=== PATIENT | female | born 1990 | race Two or more races ===

== ENCOUNTER 2022-02-06 15:26 | Inpatient (IN) | payer OTHER ==
[~2022-02-06] VITALS: Ht 170.2 cm; Wt 117.0 kg
[2022-02-06 17:45] VITALS: BP 102/59
[2022-02-06] MEDS ORDERED: MELATONIN 5 MG TABLET PO PRN (18:15)
[2022-02-06] MEDS ORDERED: ACETAMINOPHEN 325 MG TABLET PO PRN (18:15)
[2022-02-06 21:05] VITALS: BP 122/60
[2022-02-06 21:16] LABS: BASOPHILS % (AUTO) 0.6 % (0.0-2.0); EOSINOPHILS % (AUTO) 1.8 % (1.0-6.0); HEMATOCRIT 40.8 % (36-46); HEMOGLOBIN 13.2 g/dL (12.0-16.0); LYMPHOCYTES % (AUTO) 26.2 % (22.0-44.0); MEAN CORPUSCULAR HEMOGLOBIN 28.2 pg (26.0-34.0); MEAN CORPUSCULAR HGB CONC 32.5 G/dL (31.0-37.0); MEAN CORPUSCULAR VOLUME 87 fL (80-100); MONOCYTES # (AUTO) 0.7 K/uL (0.1-1.0); MONOCYTES % (AUTO) 5.9 % (2.0-9.0); NEUTROPHILS # (AUTO) 7.5 K/uL (1.8-7.7); NEUTROPHILS % (AUTO) 65.5 % (40.0-70.0); PLATELET COUNT (AUTO) 282 K/uL (150-450); RED BLOOD CELL COUNT(AUTO) 4.69 MIL/uL (4.00-5.20); RED CELL DISTRIBUTION WIDTH 14.3 % (11.5-14.5)
[2022-02-06 21:21] LABS: ALANINE AMINOTRANSFERASE 71 U/L (12-78); ALBUMIN 3.6 g/dL (3.4-5.0); ALKALINE PHOSPHATASE 94 U/L (46-116); ANION GAP 3 mmol/L (8-16); ASPARTATE AMINOTRANSFERASE 42 U/L (15-37); BILIRUBIN,TOTAL 0.7 mg/dL (0.1-1.0); CARBON DIOXIDE 31 mmol/L (22-29); CHLORIDE 103 mmol/L (98-107); CREATININE 0.63 mg/dL (0.60-1.30); GLUCOSE,RANDOM 111 mg/dL (70-110); POTASSIUM 3.8 mmol/L (3.5-5.1); SODIUM SERUM 137 mmol/L (136-145); TOTAL PROTEIN, SERUM 7.3 g/dL (6.4-8.2); UREA NITROGEN, BLOOD 15 mg/dL (7-18)
[2022-02-06 21:27] LABS: GLOMERULAR FILTR. RATE CALC > 60 mL/min (>60)
[2022-02-06] MEDS: -LIDODERM PATCH NOTE- MISC SCH (21:27)
[2022-02-06] MEDS: DOCUSATE SODIUM 100 MG CAPSULE PO SCH (21:27)
[2022-02-06] MEDS: ENOXAPARIN SODIUM 40 MG/0.4 ML PF SYRINGE SQ SCH (21:27)
[2022-02-06] MEDS: SENNA 187 MG TABLET PO SCH (21:27)
[2022-02-06] MEDS: LevETIRAcetam 500 MG TABLET PO SCH (21:27)
[2022-02-07 05:56] LABS: GLUCOMETER DEV NAME(LOC) 2WR.1C; GLUCOSE,POINT OF CARE 141 MG/DL (70-110)
[2022-02-07] MEDS: LevETIRAcetam 500 MG TABLET PO SCH ×2 (08:43→21:23)
[2022-02-07] MEDS: DOCUSATE SODIUM 100 MG CAPSULE PO SCH ×2 (08:43→21:23)
[2022-02-07] MEDS: LIDOCAINE 5% TRANSDERMAL PATCH TD SCH (08:43)
[2022-02-07] MEDS: SERTRALINE HCL 50 MG TABLET PO SCH (08:43)
[2022-02-07] MEDS: ENOXAPARIN SODIUM 40 MG/0.4 ML PF SYRINGE SQ SCH ×2 (08:44→21:23)
[2022-02-07] MEDS: ETHYL ALCOHOL 62% ANTISEPTIC NASAL SANITIZER 0.6 ML AMPUL NASAL SCH ×2 (08:44→21:23)
[2022-02-07 09:05] VITALS: BP 121/58
[2022-02-07 20:45] VITALS: BP 116/77
[2022-02-07] MEDS: SENNA 187 MG TABLET PO SCH (21:23)
[2022-02-07] MEDS: -LIDODERM PATCH NOTE- MISC SCH (21:24)
[2022-02-08] MEDS: ENOXAPARIN SODIUM 40 MG/0.4 ML PF SYRINGE SQ SCH ×2 (07:47→21:09)
[2022-02-08] MEDS: LIDOCAINE 5% TRANSDERMAL PATCH TD SCH (07:47)
[2022-02-08] MEDS: LevETIRAcetam 500 MG TABLET PO SCH ×2 (07:48→21:05)
[2022-02-08] MEDS: DOCUSATE SODIUM 100 MG CAPSULE PO SCH ×2 (07:48→21:05)
[2022-02-08] MEDS: ETHYL ALCOHOL 62% ANTISEPTIC NASAL SANITIZER 0.6 ML AMPUL NASAL SCH ×2 (07:48→21:05)
[2022-02-08] MEDS: SERTRALINE HCL 50 MG TABLET PO SCH (07:48)
[2022-02-08 09:03] VITALS: BP 124/56
[2022-02-08] MEDS: IBUPROFEN 400 MG TABLET PO SCH ×3 (12:49→21:06)
[2022-02-08 14:50] VITALS: BP 120/70
[2022-02-08 18:59] VITALS: BP 108/58
[2022-02-08] MEDS ORDERED: IOHEXOL 350 MG/ML 100 ML VIAL ONE (19:09)
[2022-02-08] MEDS ORDERED: SODIUM CHLORIDE 0.9% 100 ML ONE (19:09)
[2022-02-08 19:58] VITALS: BP 125/64
[2022-02-08] MEDS: SENNA 187 MG TABLET PO SCH (21:05)
[2022-02-08] MEDS: -LIDODERM PATCH NOTE- MISC SCH (21:06)
[2022-02-08 21:17] LABS: ANION GAP 6 mmol/L (8-16); CALCIUM, TOTAL 8.4 mg/dL (8.8-10.5); CARBON DIOXIDE 27 mmol/L (22-29); CHLORIDE 103 mmol/L (98-107); CREATININE 0.69 mg/dL (0.60-1.30); GLUCOSE,RANDOM 114 mg/dL (70-110); POTASSIUM 3.2 mmol/L (3.5-5.1); SODIUM SERUM 136 mmol/L (136-145); UREA NITROGEN, BLOOD 15 mg/dL (7-18)
[2022-02-08 21:22] LABS: GLOMERULAR FILTR. RATE CALC > 60 mL/min (>60)
[2022-02-08] MEDS ORDERED: POTASSIUM CHL 10 MEQ/WATER 50 ML IV PRN (22:15)
[2022-02-08] MEDS ORDERED: POTASSIUM CHLORIDE 20 MEQ ER TABLET PO PRN (22:15)
[2022-02-09 06:12] VITALS: BP 92/65
[2022-02-09 06:32] LABS: BASOPHILS % (AUTO) 0.7 % (0.0-2.0); EOSINOPHILS % (AUTO) 4.8 % (1.0-6.0); HEMATOCRIT 40.2 % (36-46); HEMOGLOBIN 13.1 g/dL (12.0-16.0); LYMPHOCYTES # (AUTO) 1.6 K/uL (1.0-4.8); LYMPHOCYTES % (AUTO) 23.9 % (22.0-44.0); MEAN CORPUSCULAR HEMOGLOBIN 28.4 pg (26.0-34.0); MEAN CORPUSCULAR HGB CONC 32.5 G/dL (31.0-37.0); MEAN CORPUSCULAR VOLUME 88 fL (80-100); MONOCYTES # (AUTO) 0.5 K/uL (0.1-1.0); MONOCYTES % (AUTO) 7.9 % (2.0-9.0); NEUTROPHILS # (AUTO) 4.2 K/uL (1.8-7.7); NEUTROPHILS % (AUTO) 62.7 % (40.0-70.0); PLATELET COUNT (AUTO) 218 K/uL (150-450); RED BLOOD CELL COUNT(AUTO) 4.59 MIL/uL (4.00-5.20); RED CELL DISTRIBUTION WIDTH 14.1 % (11.5-14.5)
[2022-02-09] MEDS: ENOXAPARIN SODIUM 40 MG/0.4 ML PF SYRINGE SQ SCH ×2 (07:33→20:08)
[2022-02-09] MEDS: ETHYL ALCOHOL 62% ANTISEPTIC NASAL SANITIZER 0.6 ML AMPUL NASAL SCH ×2 (07:35→20:10)
[2022-02-09] MEDS: DOCUSATE SODIUM 100 MG CAPSULE PO SCH ×2 (07:35→20:09)
[2022-02-09] MEDS: LevETIRAcetam 500 MG TABLET PO SCH ×2 (07:36→20:09)
[2022-02-09] MEDS: SERTRALINE HCL 50 MG TABLET PO SCH (07:36)
[2022-02-09] MEDS: IBUPROFEN 400 MG TABLET PO SCH (07:36)
[2022-02-09] MEDS: LIDOCAINE 5% TRANSDERMAL PATCH TD SCH (07:37)
[2022-02-09 08:10] VITALS: BP 114/64
[2022-02-09 19:30] VITALS: BP 110/67
[2022-02-09] MEDS: IBUPROFEN 400 MG TABLET PO PRN (20:08)
[2022-02-09] MEDS: -LIDODERM PATCH NOTE- MISC SCH (20:11)
[2022-02-09] MEDS: SENNA 187 MG TABLET PO SCH (20:12)
[2022-02-10 06:48] LABS: ALANINE AMINOTRANSFERASE 78 U/L (12-78); ALBUMIN 3.3 g/dL (3.4-5.0); ALKALINE PHOSPHATASE 87 U/L (46-116); ANION GAP 6 mmol/L (8-16); ASPARTATE AMINOTRANSFERASE 40 U/L (15-37); BILIRUBIN,TOTAL 0.4 mg/dL (0.1-1.0); CALCIUM, TOTAL 8.7 mg/dL (8.8-10.5); CARBON DIOXIDE 28 mmol/L (22-29); CHLORIDE 106 mmol/L (98-107); GLUCOSE,RANDOM 103 mg/dL (70-110); POTASSIUM 3.6 mmol/L (3.5-5.1); SODIUM SERUM 140 mmol/L (136-145); THYROID STIMULATING HORMONE 0.79 uIU/mL (0.36-3.74); TOTAL PROTEIN, SERUM 6.7 g/dL (6.4-8.2); UREA NITROGEN, BLOOD 11 mg/dL (7-18)
[2022-02-10 06:52] LABS: GLOMERULAR FILTR. RATE CALC > 60 mL/min (>60)
[2022-02-10 08:00] VITALS: BP 110/52
[2022-02-10] MEDS: LIDOCAINE 5% TRANSDERMAL PATCH TD SCH (08:13)
[2022-02-10] MEDS: ETHYL ALCOHOL 62% ANTISEPTIC NASAL SANITIZER 0.6 ML AMPUL NASAL SCH ×2 (08:13→21:02)
[2022-02-10] MEDS: ENOXAPARIN SODIUM 40 MG/0.4 ML PF SYRINGE SQ SCH ×2 (08:14→21:02)
[2022-02-10] MEDS: LevETIRAcetam 500 MG TABLET PO SCH ×2 (08:14→21:02)
[2022-02-10] MEDS: DOCUSATE SODIUM 100 MG CAPSULE PO SCH ×2 (08:14→21:02)
[2022-02-10] MEDS: SERTRALINE HCL 50 MG TABLET PO SCH (08:14)
[2022-02-10 20:30] VITALS: BP 112/66
[2022-02-10] MEDS: SENNA 187 MG TABLET PO SCH (21:02)
[2022-02-10] MEDS: IBUPROFEN 400 MG TABLET PO PRN (21:02)
[2022-02-10] MEDS: -LIDODERM PATCH NOTE- MISC SCH (21:03)
[2022-02-10] MEDS ORDERED: POTASSIUM CHL 10 MEQ/WATER 50 ML IV PRN (21:45)
[2022-02-11] MEDS: ETHYL ALCOHOL 62% ANTISEPTIC NASAL SANITIZER 0.6 ML AMPUL NASAL SCH ×2 (08:24→20:11)
[2022-02-11] MEDS: ENOXAPARIN SODIUM 40 MG/0.4 ML PF SYRINGE SQ SCH ×2 (08:25→20:11)
[2022-02-11] MEDS: LIDOCAINE 5% TRANSDERMAL PATCH TD SCH (08:26)
[2022-02-11] MEDS: LevETIRAcetam 500 MG TABLET PO SCH ×2 (08:26→20:11)
[2022-02-11] MEDS: SERTRALINE HCL 50 MG TABLET PO SCH (08:26)
[2022-02-11] MEDS: DOCUSATE SODIUM 100 MG CAPSULE PO SCH ×2 (08:26→20:11)
[2022-02-11 08:41] VITALS: BP 120/68
[2022-02-11] MEDS: -LIDODERM PATCH NOTE- MISC SCH (20:23)
[2022-02-11] MEDS: SENNA 187 MG TABLET PO SCH (20:24)
[2022-02-11 20:25] VITALS: BP 117/54
[2022-02-12] MEDS: ETHYL ALCOHOL 62% ANTISEPTIC NASAL SANITIZER 0.6 ML AMPUL NASAL SCH ×2 (08:08→20:11)
[2022-02-12] MEDS: SERTRALINE HCL 50 MG TABLET PO SCH (08:09)
[2022-02-12] MEDS: DOCUSATE SODIUM 100 MG CAPSULE PO SCH ×2 (08:09→20:11)
[2022-02-12] MEDS: LevETIRAcetam 500 MG TABLET PO SCH ×2 (08:09→20:10)
[2022-02-12] MEDS: LIDOCAINE 5% TRANSDERMAL PATCH TD SCH (08:09)
[2022-02-12] MEDS: ENOXAPARIN SODIUM 40 MG/0.4 ML PF SYRINGE SQ SCH ×2 (08:10→20:10)
[2022-02-12 09:15] VITALS: BP 121/55
[2022-02-12] MEDS: POTASSIUM CHLORIDE 10 MEQ ER TABLET PO SCH (11:58)
[2022-02-12 20:10] VITALS: BP 134/67
[2022-02-12] MEDS: SENNA 187 MG TABLET PO SCH ×2 (20:10→20:12)
[2022-02-12] MEDS: -LIDODERM PATCH NOTE- MISC SCH (20:11)
[2022-02-13] MEDS: LIDOCAINE 5% TRANSDERMAL PATCH TD SCH (08:02)
[2022-02-13] MEDS: SERTRALINE HCL 50 MG TABLET PO SCH (08:03)
[2022-02-13] MEDS: LevETIRAcetam 500 MG TABLET PO SCH ×2 (08:03→21:00)
[2022-02-13] MEDS: ETHYL ALCOHOL 62% ANTISEPTIC NASAL SANITIZER 0.6 ML AMPUL NASAL SCH ×2 (08:03→21:00)
[2022-02-13] MEDS: DOCUSATE SODIUM 100 MG CAPSULE PO SCH ×2 (08:03→21:00)
[2022-02-13] MEDS: ENOXAPARIN SODIUM 40 MG/0.4 ML PF SYRINGE SQ SCH ×2 (08:08→21:00)
[2022-02-13] MEDS: POTASSIUM CHLORIDE 10 MEQ ER TABLET PO SCH (08:08)
[2022-02-13 08:49] VITALS: BP 107/57
[2022-02-13] MEDS: SENNA 187 MG TABLET PO SCH (21:00)
[2022-02-13] MEDS: -LIDODERM PATCH NOTE- MISC SCH (21:01)
[2022-02-13 21:03] VITALS: BP 128/88
[2022-02-14] MEDS: ENOXAPARIN SODIUM 40 MG/0.4 ML PF SYRINGE SQ SCH ×2 (06:52→21:18)
[2022-02-14] MEDS: LevETIRAcetam 500 MG TABLET PO SCH ×2 (06:52→21:18)
[2022-02-14] MEDS: ETHYL ALCOHOL 62% ANTISEPTIC NASAL SANITIZER 0.6 ML AMPUL NASAL SCH ×2 (06:53→21:18)
[2022-02-14] MEDS: POTASSIUM CHLORIDE 10 MEQ ER TABLET PO SCH (06:53)
[2022-02-14] MEDS: SERTRALINE HCL 50 MG TABLET PO SCH (06:54)
[2022-02-14 10:45] VITALS: BP 113/66
[2022-02-14] MEDS: DOCUSATE SODIUM 100 MG CAPSULE PO SCH ×2 (11:15→21:18)
[2022-02-14] MEDS: LIDOCAINE 5% TRANSDERMAL PATCH TD SCH (11:16)
[2022-02-14 19:45] VITALS: BP 122/67
[2022-02-14] MEDS: SENNA 187 MG TABLET PO SCH (21:00)
[2022-02-14] MEDS: -LIDODERM PATCH NOTE- MISC SCH (21:18)
[2022-02-15] MEDS: POTASSIUM CHLORIDE 10 MEQ ER TABLET PO SCH (07:10)
[2022-02-15] MEDS: ENOXAPARIN SODIUM 40 MG/0.4 ML PF SYRINGE SQ SCH ×2 (07:10→21:00)
[2022-02-15] MEDS: SERTRALINE HCL 50 MG TABLET PO SCH (07:11)
[2022-02-15] MEDS: DOCUSATE SODIUM 100 MG CAPSULE PO SCH ×2 (07:11→21:01)
[2022-02-15] MEDS: LevETIRAcetam 500 MG TABLET PO SCH ×2 (07:11→21:00)
[2022-02-15] MEDS: LIDOCAINE 5% TRANSDERMAL PATCH TD SCH (07:12)
[2022-02-15] MEDS: ETHYL ALCOHOL 62% ANTISEPTIC NASAL SANITIZER 0.6 ML AMPUL NASAL SCH ×2 (07:31→21:00)
[2022-02-15 08:41] VITALS: BP 110/59
[2022-02-15 20:24] VITALS: BP 121/55
[2022-02-15] MEDS: SENNA 187 MG TABLET PO SCH (21:00)
[2022-02-15] MEDS: -LIDODERM PATCH NOTE- MISC SCH (21:01)
[2022-02-16 07:35] VITALS: BP 107/53
[2022-02-16] MEDS: ETHYL ALCOHOL 62% ANTISEPTIC NASAL SANITIZER 0.6 ML AMPUL NASAL SCH ×2 (07:52→21:36)
[2022-02-16] MEDS: DOCUSATE SODIUM 100 MG CAPSULE PO SCH ×2 (07:53→21:00)
[2022-02-16] MEDS: ENOXAPARIN SODIUM 40 MG/0.4 ML PF SYRINGE SQ SCH ×2 (07:53→21:36)
[2022-02-16] MEDS: LevETIRAcetam 500 MG TABLET PO SCH ×2 (07:53→21:36)
[2022-02-16] MEDS: SERTRALINE HCL 50 MG TABLET PO SCH (07:53)
[2022-02-16] MEDS: LIDOCAINE 5% TRANSDERMAL PATCH TD SCH (07:54)
[2022-02-16 20:05] VITALS: BP 108/61
[2022-02-16] MEDS: SENNA 187 MG TABLET PO SCH (21:00)
[2022-02-16] MEDS: -LIDODERM PATCH NOTE- MISC SCH (21:36)
[2022-02-17 07:35] VITALS: BP 112/66
[2022-02-17] MEDS: ETHYL ALCOHOL 62% ANTISEPTIC NASAL SANITIZER 0.6 ML AMPUL NASAL SCH ×2 (07:56→20:51)
[2022-02-17] MEDS: LevETIRAcetam 500 MG TABLET PO SCH ×2 (07:56→20:51)
[2022-02-17] MEDS: DOCUSATE SODIUM 100 MG CAPSULE PO SCH ×2 (07:57→20:52)
[2022-02-17] MEDS: ENOXAPARIN SODIUM 40 MG/0.4 ML PF SYRINGE SQ SCH ×2 (07:57→20:51)
[2022-02-17] MEDS: LIDOCAINE 5% TRANSDERMAL PATCH TD SCH (07:57)
[2022-02-17] MEDS: SERTRALINE HCL 50 MG TABLET PO SCH (07:57)
[2022-02-17 20:35] VITALS: BP 106/65
[2022-02-17] MEDS: SENNA 187 MG TABLET PO SCH (20:51)
[2022-02-17] MEDS: -LIDODERM PATCH NOTE- MISC SCH (21:02)
[2022-02-18] MEDS ORDERED: SENNA 187 MG TABLET PO PRN (00:45)
[2022-02-18] MEDS ORDERED: LEVE500T20 PO (01:02)
[2022-02-18] MEDS ORDERED: LIDO700A15 TP (01:02)
[2022-02-18] MEDS ORDERED: DOCU-385 PO (01:02)
[2022-02-18] MEDS ORDERED: SERT-158 PO (01:02)
[2022-02-18] MEDS: LIDOCAINE 5% TRANSDERMAL PATCH TD SCH (08:23)
[2022-02-18] MEDS: SERTRALINE HCL 50 MG TABLET PO SCH (08:23)
[2022-02-18] MEDS: LevETIRAcetam 500 MG TABLET PO SCH ×2 (08:23→20:19)
[2022-02-18] MEDS: ENOXAPARIN SODIUM 40 MG/0.4 ML PF SYRINGE SQ SCH ×2 (08:23→20:19)
[2022-02-18] MEDS: ETHYL ALCOHOL 62% ANTISEPTIC NASAL SANITIZER 0.6 ML AMPUL NASAL SCH ×2 (08:23→20:20)
[2022-02-18] MEDS: DOCUSATE SODIUM 100 MG CAPSULE PO SCH ×2 (08:26→20:20)
[2022-02-18 09:01] VITALS: BP 111/56
[2022-02-18 20:12] VITALS: BP 102/67
[2022-02-18] MEDS: -LIDODERM PATCH NOTE- MISC SCH (20:20)
[2022-02-19] MEDS: ENOXAPARIN SODIUM 40 MG/0.4 ML PF SYRINGE SQ SCH ×2 (07:11→20:26)
[2022-02-19] MEDS: LevETIRAcetam 500 MG TABLET PO SCH ×2 (07:11→20:26)
[2022-02-19] MEDS: ETHYL ALCOHOL 62% ANTISEPTIC NASAL SANITIZER 0.6 ML AMPUL NASAL SCH ×2 (07:11→20:28)
[2022-02-19] MEDS: SERTRALINE HCL 50 MG TABLET PO SCH (07:11)
[2022-02-19] MEDS: LIDOCAINE 5% TRANSDERMAL PATCH TD SCH (07:11)
[2022-02-19] MEDS: DOCUSATE SODIUM 100 MG CAPSULE PO SCH ×2 (07:52→20:28)
[2022-02-19 09:18] VITALS: BP 126/67
[2022-02-19 20:00] VITALS: BP 107/63
[2022-02-19] MEDS: -LIDODERM PATCH NOTE- MISC SCH (20:28)
[2022-02-20] MEDS: DOCUSATE SODIUM 100 MG CAPSULE PO SCH ×2 (08:06→20:21)
[2022-02-20] MEDS: LIDOCAINE 5% TRANSDERMAL PATCH TD SCH (08:06)
[2022-02-20] MEDS: LevETIRAcetam 500 MG TABLET PO SCH ×2 (08:06→20:19)
[2022-02-20] MEDS: ENOXAPARIN SODIUM 40 MG/0.4 ML PF SYRINGE SQ SCH ×2 (08:06→20:19)
[2022-02-20] MEDS: ETHYL ALCOHOL 62% ANTISEPTIC NASAL SANITIZER 0.6 ML AMPUL NASAL SCH ×2 (08:06→20:19)
[2022-02-20] MEDS: SERTRALINE HCL 50 MG TABLET PO SCH (08:07)
[2022-02-20 08:09] VITALS: BP 106/65
[2022-02-20 20:00] VITALS: BP 107/63
[2022-02-20] MEDS: -LIDODERM PATCH NOTE- MISC SCH (20:21)
[2022-02-21 07:45] VITALS: BP 102/61
[2022-02-21] MEDS: ETHYL ALCOHOL 62% ANTISEPTIC NASAL SANITIZER 0.6 ML AMPUL NASAL SCH (08:25)
[2022-02-21] MEDS: DOCUSATE SODIUM 100 MG CAPSULE PO SCH (08:25)
[2022-02-21] MEDS: ENOXAPARIN SODIUM 40 MG/0.4 ML PF SYRINGE SQ SCH (08:25)
[2022-02-21] MEDS: SERTRALINE HCL 50 MG TABLET PO SCH (08:25)
[2022-02-21] MEDS: LevETIRAcetam 500 MG TABLET PO SCH (08:25)
[2022-02-21] MEDS: LIDOCAINE 5% TRANSDERMAL PATCH TD SCH (08:26)
[2022-02-21] MEDS ORDERED: SERT-439 PO (09:19)
[2022-02-21] MEDS ORDERED: LEVE500T8 PO (09:19)
[2022-02-21] MEDS ORDERED: LIDO700A30 TD (09:19)
== END 2022-02-21 11:15 | disposition home or self-care (01) | DRG 57 ==
LOC: 2WR 17:35
PROVIDERS: ADMIT Physical Medicine & Rehabilitation; ATTEND Physical Medicine & Rehabilitation
DX: G81.94 Hemiplegia, unspecified affecting left nondominant side (principal); R41.4 Neurologic neglect syndrome; Z68.41 Body mass index [BMI] 40.0-44.9, adult; E46 Unspecified protein-calorie malnutrition; E87.6 Hypokalemia; I48.91 Unspecified atrial fibrillation; I49.3 Ventricular premature depolarization; N94.6 Dysmenorrhea, unspecified; R27.0 Ataxia, unspecified; D49.6 Neoplasm of unspecified behavior of brain; E66.01 Morbid (severe) obesity due to excess calories; R51.9 Headache, unspecified; R73.9 Hyperglycemia, unspecified; Z79.899 Other long term (current) drug therapy; Z90.49 Acquired absence of other specified parts of digestive tract
CPT/HCPCS: 71275; 80048; 80053; 82962; 83735; 84132; 84443; 84484; 85025; 87081; 93005; 93306; 93970; 97110; 97112; 97116; 97150; 97163; 97166; 97530; 97535; 99366; J1650; J7050; Q9967